=== PATIENT | female | born 1950 | race Hispanic/Latino ===

== ENCOUNTER → 2020-01-12 | Outpatient (CLI) | payer OTHER ==
[~2020-01-12] MED LIST: AMLODIPINE BESYL5 MG PO; CLEOCIN HCL150 MG PO; DICYCLOMINE HCL10 MG PO; FUROSEMIDE40 MG PO; LANSOPRAZOLE30 MG PO; LORATADINE10 MG PO; MELOXICAM7.5 MG PO; POTASSIUM CHLO20 ME1 PO; TYLENOL WITH C1 EACH PO
--- NOTE | 2020-01-12 14:27 | Diagnostic Imaging Report ---
MRI SPINE LUMBAR WO HISTORY: Back pain and left leg pain COMPARISON: None. TECHNIQUE: Sagittal T1, sagittal T2, sagittal STIR, axial T2, coronal T2, and axial proton density weighted images of the lumbar spine were obtained without contrast. Motion artifacts obscure some details. DISCUSSION: Number of non-rib bearing lumbar vertebral bodies: 5. Alignment: Normal lordosis. There is subtle thoracolumbar levoscoliosis. Vertebrae: Scattered small nodular T1 hyperintense vertebral body lesions are benign hemangiomas. Otherwise, no acute fractures, or neoplasm. Conus medullaris: Normal, ends at L1-L2. Cauda equina: No masses or arachnoiditis. Posterior paraspinal muscles: Well preserved. No signal abnormalities. Soft tissues: Colonic diverticulosis is present. There is moderate L4-L5 and severe L5-S1 disc degeneration. There are nonspecific minimal inflammatory plate changes at L5-S1. T12-L1: Patent canal and foramina. L1-L2: Patent canal and foramina. L2-L3: There is minimal retrolisthesis of L2 on L3. Disc bulge without significant canal or foraminal stenosis. L3-L4: There is minimal retrolisthesis of L3 on L4. Disc bulge without significant canal or foraminal stenosis. L4-L5: Grade 1 anterolisthesis of L4 on L5 with possible chronic bilateral L4 pars defects. There is prominent bilateral L4-L5 facet arthrosis with small bilateral facet effusions. Severe canal stenosis is due to uncovered disc bulge and ligamentum flavum thickening. The thecal sac is effaced. Moderate right and mild to moderate left foraminal stenoses due to uncovered disc bulge and facet arthrosis. L5-S1: Grade 1 anterolisthesis of L5 on S1 is due to severe bilateral facet arthrosis. Bilateral L5-S1 facet effusions are present. Moderate canal stenosis due to uncovered disc bulge and ligamentum flavum thickening. Severe bilateral foraminal stenoses due to uncovered disc bulge and facet arthrosis, left greater than right. IMPRESSION: 1. Grade 1 anterolisthesis of L4 on L5 with possible chronic bilateral L4 pars defects. There is also prominent bilateral L4-L5 facet arthrosis. 2. Grade 1 anterolisthesis of L5 on S1 is due to severe bilateral facet arthrosis. 3. Associated moderate L4-L5 and severe L5-S1 disc degeneration with nonspecific minimal inflammatory endplate changes at L5-S1. 4. Severe L4-L5 and moderate L5-S1 degenerative canal stenoses. 5. Multilevel degenerative foraminal stenoses - severe bilaterally at L5-S1, left greater than right. Signed by: Dr. Bryan Delcid M.D. on 01/12/2020 2:24 PM
== END ==
LOC: MRI 12:47
PROVIDERS: ATTEND Specialist
DX: M47.26 Other spondylosis with radiculopathy, lumbar region (principal)
CPT/HCPCS: 72148

== ENCOUNTER 2022-04-02 16:53 | Inpatient (IN) | payer MEDICARE, OTHER ==
[~2022-04-02] VITALS: Ht 157.5 cm; Wt 90.7 kg
[2022-04-02] MEDS ORDERED: IPRATROPIUM BROMIDE 0.02% 2.5 ML NEB NEB ONE (17:00)
[2022-04-02] MEDS ORDERED: ALBUTEROL SULF 0.083% NEB SOLN 3 ML NEB NEB STA (17:00)
[2022-04-02 17:10] LABS: BASOPHILS # (AUTO) 0.1 (0.0-0.1); BASOPHILS % 0.9 % (0.0-1.0); EOSINOPHILS # (AUTO) 0.1 (0.0-0.4); EOSINOPHILS % 0.7 % (0.0-6.0); HEMATOCRIT 42.8 % (34.2-44.1); HEMOGLOBIN 13.9 g/dL (12.0-16.0); LYMPHOCYTES # (AUTO) 1.3 (1.0-3.2); MEAN CORPUSCULAR HEMOGLOBIN 30.9 pg (28-32); MEAN CORPUSCULAR HGB CONC 32.5 g/dL (31-35); MEAN CORPUSCULAR VOLUME 95.1 fL (81-99); MONOCYTES # (AUTO) 0.8 (0.2-0.8); NEUTROPHILS # (AUTO) 9.3 (2.1-6.9); NEUTROPHILS % 79.3 % (38.7-80.0); PLATELET COUNT 316 x10e3/uL (140-360); RED CELL DISTRIBUTION WIDTH 14.3 % (11.7-14.4)
[2022-04-02 17:22] LABS: ABG HCO3 18 mmol/L (22-26); ABG PCO2 28 mmHg (35-45); ABG PO2 61 mmHg (80-105); ABG TCO2 19
[2022-04-02 17:28] LABS: ALBUMIN 3.4 g/dL (3.5-5.0); ALBUMIN/GLOBULIN RATIO 0.8 (0.8-2.0); ANION GAP 24.6 mmol/L (8-16); CALCIUM 8.8 mg/dL (8.4-10.2); CREATININE, SERUM 1.84 mg/dL (0.57-1.11)
[2022-04-02 17:32] LABS: POTASSIUM 2.6 mmol/L (3.5-5.1)
[2022-04-02 17:34] LABS: CREATINE KINASE MB 1.4 ng/mL (0-5.0)
[2022-04-02] MEDS ORDERED: POTASSIUM CHLORIDE 20 MEQ TAB CR PO STA (17:42)
[2022-04-02] MEDS ORDERED: ENOXAPARIN INJ 80 MG/0.8 ML SYR SC STA (18:43)
[2022-04-02] MEDS ORDERED: SODIUM CHLORIDE FLUSH 10 ML SYR INJ PRN (19:00)
[2022-04-02] MEDS ORDERED: ONDANSETRON HCL INJ 2MG/ML 2ML 2 MG/ML VIAL IV PRN (19:00)
[2022-04-02] MEDS ORDERED: POTASSIUM CHLORIDE 20MEQ/100ML 100 ML IV STA (19:01)
[2022-04-02] MEDS ORDERED: SODIUM CHLORIDE 0.9% 250ML 250 ML ONE ×3 (20:15→22:36)
[2022-04-02] MEDS ORDERED: CLONIDINE HCL 0.2 MG TAB PO PRN (20:15)
[2022-04-02] MEDS ORDERED: DEXTROSE 50% SYRINGE 50 ML IV PRN (20:15)
[2022-04-02] MEDS ORDERED: ZOLPIDEM TARTRATE 5 MG TAB PO PRN (20:15)
[2022-04-02] MEDS: INSULIN REGULAR, HUMAN 100 UNIT/1 ML SQ SCH (22:32)
[2022-04-02 23:02] VITALS: BP 118/82
[2022-04-02 23:06] VITALS: BP 118/60
[2022-04-02 23:15] VITALS: BP 109/69
[2022-04-02 23:30] VITALS: BP 112/81
[2022-04-02] MEDS ORDERED: ASPIRIN 81 MG CHEW TAB PO ONE (23:30)
[2022-04-02 23:45] VITALS: BP 101/72
[2022-04-03] VITALS (76 sets, daily range): BP systolic 69–157; BP diastolic 47–128
[2022-04-03 00:44] LABS: CREATINE KINASE MB 1.9 ng/mL (0-5.0)
[2022-04-03] MEDS ORDERED: ACETAMINOPHEN 325 MG TAB PO PRN (01:45)
[2022-04-03 07:17] LABS: BASOPHILS % 0.3 % (0.0-1.0); HEMATOCRIT 37.1 % (34.2-44.1); HEMOGLOBIN 12.9 g/dL (12.0-16.0); LYMPHOCYTES # (AUTO) 1.1 (1.0-3.2); LYMPHOCYTES % 11.3 % (18.0-39.1); MEAN CORPUSCULAR HGB CONC 34.8 g/dL (31-35); MEAN CORPUSCULAR VOLUME 89.2 fL (81-99); MONOCYTES # (AUTO) 0.2 (0.2-0.8); MONOCYTES % 2.5 % (4.4-11.3); NEUTROPHILS % 84.9 % (38.7-80.0); PLATELET COUNT 279 x10e3/uL (140-360); RED BLOOD COUNT 4.16 x10e6/uL (3.6-5.1)
[2022-04-03] MEDS: INSULIN REGULAR, HUMAN 100 UNIT/1 ML SQ SCH (07:30)
[2022-04-03 07:45] LABS: ALBUMIN/GLOBULIN RATIO 0.9 (0.8-2.0); CALCIUM 8.4 mg/dL (8.4-10.2); CREATININE, SERUM 1.3 mg/dL (0.57-1.11)
[2022-04-03 08:05] LABS: CREATINE KINASE MB 1.8 ng/mL (0-5.0)
[2022-04-03] MEDS ORDERED: PANTOPRAZOLE SOD 40 MG TABEC PO SCH (09:00)
[2022-04-03] MEDS ORDERED: AMLODIPINE BESYLATE 5 MG TAB PO SCH (09:00)
[2022-04-03] MEDS ORDERED: HEPARIN SOD (PORCINE) 5,000 UNIT/ML VIAL IV ONE ×2 (09:15→09:55)
[2022-04-03] MEDS ORDERED: ALBUTEROL/IPRATROPIUM 3 ML NEB NEB PRN (09:15)
[2022-04-03] MEDS ORDERED: HEPARIN 25,000 UNIT 25,000 UNIT in DEXTROSE 5% 250ML 250 ML IV SCH ×2 (09:15→09:30)
[2022-04-03] MEDS ORDERED: METOPROLOL TARTRATE INJ 1 MG/ML VIAL IV PRN (09:15)
[2022-04-03] MEDS ORDERED: ACETAMINOPHEN 1000 MG/100 ML IV PRN (09:15)
[2022-04-03] MEDS ORDERED: HYDRALAZINE HCL 20 MG/ML VIAL IV PRN (09:15)
[2022-04-03] MEDS ORDERED: DEXTROSE 50% SYRINGE 50 ML IV PRN (09:15)
[2022-04-03] MEDS ORDERED: DEXAMETHASONE SOD PHOS INJ 4 MG/ML SDV IV SCH (10:00)
[2022-04-03] MEDS: SOD CHL 0.45%/POT CHL 20MEQ 1,000 ML IV SCH ×2 (10:42→12:41)
[2022-04-03] MEDS: POTASSIUM CHLORIDE 20MEQ/100ML 100 ML IV SCH ×2 (10:44→12:40)
[2022-04-03] MEDS: HEPARIN 25,000 UNIT 1,200 UNIT in DEXTROSE 5% 250ML 250 ML IV SCH (10:49)
[2022-04-03] MEDS: INSULIN LISPRO 100 UNIT/1 ML 3ML VIAL SQ SCH ×3 (12:39→21:27)
[2022-04-03] MEDS: ALBUTEROL/IPRATROPIUM 3 ML NEB NEB SCH ×2 (13:00→19:50)
[2022-04-03 15:57] LABS: CREATINE KINASE MB 1.5 ng/mL (0-5.0)
[2022-04-03] MEDS ORDERED: REMDESIVIR 200MG 200 MG in SODIUM CHLORIDE 0.9% 100 ML IV ONE (22:30)
[2022-04-04] VITALS (49 sets, daily range): BP systolic 84–132; BP diastolic 64–104
[2022-04-04] MEDS: ALBUTEROL/IPRATROPIUM 3 ML NEB NEB SCH ×4 (02:20→19:27)
[2022-04-04 06:11] LABS: BASOPHILS % 0.3 % (0.0-1.0); EOSINOPHILS % 0.1 % (0.0-6.0); HEMATOCRIT 31.3 % (34.2-44.1); HEMOGLOBIN 10.7 g/dL (12.0-16.0); LYMPHOCYTES # (AUTO) 1.7 (1.0-3.2); LYMPHOCYTES % 15.2 % (18.0-39.1); MEAN CORPUSCULAR HEMOGLOBIN 31.2 pg (28-32); MEAN CORPUSCULAR HGB CONC 34.2 g/dL (31-35); MEAN CORPUSCULAR VOLUME 91.3 fL (81-99); MONOCYTES # (AUTO) 0.7 (0.2-0.8); MONOCYTES % 6.5 % (4.4-11.3); NEUTROPHILS # (AUTO) 8.4 (2.1-6.9); NEUTROPHILS % 76.7 % (38.7-80.0); PLATELET COUNT 240 x10e3/uL (140-360); RED BLOOD COUNT 3.43 x10e6/uL (3.6-5.1); RED CELL DISTRIBUTION WIDTH 14.3 % (11.7-14.4)
[2022-04-04 06:27] LABS: ANION GAP 13.8 mmol/L (8-16); CALCIUM 7.2 mg/dL (8.4-10.2); CREATININE, SERUM 0.79 mg/dL (0.57-1.11); POTASSIUM 5.8 mmol/L (3.5-5.1)
[2022-04-04 06:29] LABS: MAGNESIUM 1.4 MG/DL (1.3-2.1); PHOSPHORUS 1.7 MG/DL (2.3-4.7)
[2022-04-04 06:50] LABS: THYROID STIMULATING HORMONE 1.327 uIU/mL (0.350-4.940)
[2022-04-04] MEDS: INSULIN LISPRO 100 UNIT/1 ML 3ML VIAL SQ SCH ×4 (07:40→19:58)
[2022-04-04] MEDS: DEXAMETHASONE SOD PHOS INJ 4 MG/ML SDV IV SCH (08:24)
[2022-04-04] MEDS ORDERED: MAGNESIUM SULFATE 2GM/50ML IV ONE (09:00)
[2022-04-04] MEDS ORDERED: REMDESIVIR 200MG 200 MG in SODIUM CHLORIDE 0.9% 100 ML IV ONE (09:00)
[2022-04-04] MEDS ORDERED: MAGNESIUM SULFATE 2GM/50ML 50 ML IV ONE ×2 (09:30→17:00)
[2022-04-04] MEDS ORDERED: IOPAMIDOL 370 MG/ML 100 ML INFUS..BTL INJ ONE (10:03)
[2022-04-04] MEDS: HEPARIN 25,000 UNIT 1,200 UNIT in DEXTROSE 5% 250ML 250 ML IV SCH (10:42)
[2022-04-04] MEDS ORDERED: POTASSIUM CHLORIDE 20 MEQ TAB CR PO STA (16:59)
[2022-04-04] MEDS: CALCIUM CARBONATE 500 MG CHEWABLE TABS PO SCH (17:01)
[2022-04-04] MEDS ORDERED: SODIUM PHOSPHATE IN 0.9 % NACL 20 MMOL in SODIUM CHLORIDE 0.9% 250ML 250 ML IV ONE ×2 (17:30)
[2022-04-04] MEDS ORDERED: ALTEPLASE 50 MG/VIAL (29 MILLION IU) IV SCH (17:30)
[2022-04-04] MEDS ORDERED: ALTEPLASE 100 MG/VIAL IV SCH (17:30)
[2022-04-04] MEDS ORDERED: SODIUM CHLORIDE 0.9% 100 ML ONE (17:43)
[2022-04-04] MEDS: PANTOPRAZOLE SOD 40 MG TABEC PO SCH (19:56)
[2022-04-05] VITALS (61 sets, daily range): BP systolic 82–144; BP diastolic 53–120
[2022-04-05] MEDS: ALBUTEROL/IPRATROPIUM 3 ML NEB NEB SCH ×5 (01:30→23:51)
[2022-04-05 05:13] LABS: BASOPHILS % 0.3 % (0.0-1.0); HEMOGLOBIN 11.7 g/dL (12.0-16.0); LYMPHOCYTES % 14.6 % (18.0-39.1); MEAN CORPUSCULAR HEMOGLOBIN 31.5 pg (28-32); MEAN CORPUSCULAR HGB CONC 34.4 g/dL (31-35); MEAN CORPUSCULAR VOLUME 91.6 fL (81-99); MONOCYTES % 7.8 % (4.4-11.3); NEUTROPHILS # (AUTO) 10.1 (2.1-6.9); NEUTROPHILS % 75.6 % (38.7-80.0); PLATELET COUNT 235 x10e3/uL (140-360); RED BLOOD COUNT 3.71 x10e6/uL (3.6-5.1); RED CELL DISTRIBUTION WIDTH 14.3 % (11.7-14.4)
[2022-04-05 05:33] LABS: ANION GAP 16.2 mmol/L (8-16); CALCIUM 8.7 mg/dL (8.4-10.2); CREATININE, SERUM 0.82 mg/dL (0.57-1.11); POTASSIUM 3.2 mmol/L (3.5-5.1)
[2022-04-05 06:06] LABS: ALBUMIN 2.9 g/dL (3.5-5.0); ALBUMIN/GLOBULIN RATIO 0.9 (0.8-2.0)
[2022-04-05 06:19] LABS: MAGNESIUM 2.1 MG/DL (1.3-2.1); PHOSPHORUS 4.4 MG/DL (2.3-4.7)
[2022-04-05] MEDS: PANTOPRAZOLE SOD 40 MG TABEC PO SCH (07:28)
[2022-04-05] MEDS: INSULIN LISPRO 100 UNIT/1 ML 3ML VIAL SQ SCH ×4 (07:30→22:09)
[2022-04-05] MEDS ORDERED: POTASSIUM CHLORIDE 20MEQ/100ML 200 ML IV ONE (08:15)
[2022-04-05] MEDS: DEXAMETHASONE SOD PHOS INJ 4 MG/ML SDV IV SCH (08:42)
[2022-04-05] MEDS: CALCIUM CARBONATE 500 MG CHEWABLE TABS PO SCH ×2 (08:46→16:34)
[2022-04-05] MEDS: REMDESIVIR 100MG 100 MG in SODIUM CHLORIDE 0.9% 100 ML IV SCH (09:15)
[2022-04-05] MEDS: HEPARIN 25,000 UNIT 1,200 UNIT in DEXTROSE 5% 250ML 250 ML IV SCH ×2 (10:00→22:04)
[2022-04-06] VITALS (27 sets, daily range): BP systolic 86–119; BP diastolic 51–92
[2022-04-06] MEDS: ALBUTEROL/IPRATROPIUM 3 ML NEB NEB SCH ×4 (06:30→23:43)
[2022-04-06 07:08] LABS: BASOPHILS % 0.4 % (0.0-1.0); EOSINOPHILS % 0.4 % (0.0-6.0); HEMOGLOBIN 10.6 g/dL (12.0-16.0); MEAN CORPUSCULAR HGB CONC 32.1 g/dL (31-35); MEAN CORPUSCULAR VOLUME 96.5 fL (81-99); MONOCYTES # (AUTO) 0.8 (0.2-0.8); MONOCYTES % 7.2 % (4.4-11.3); NEUTROPHILS # (AUTO) 7.6 (2.1-6.9); NEUTROPHILS % 71.5 % (38.7-80.0); PLATELET COUNT 219 x10e3/uL (140-360); RED BLOOD COUNT 3.42 x10e6/uL (3.6-5.1); RED CELL DISTRIBUTION WIDTH 14.4 % (11.7-14.4)
[2022-04-06 07:28] LABS: ALBUMIN 2.6 g/dL (3.5-5.0); ALBUMIN/GLOBULIN RATIO 0.9 (0.8-2.0); ANION GAP 12.6 mmol/L (8-16); CALCIUM 8.3 mg/dL (8.4-10.2); CREATININE, SERUM 0.77 mg/dL (0.57-1.11); POTASSIUM 3.6 mmol/L (3.5-5.1)
[2022-04-06] MEDS: INSULIN LISPRO 100 UNIT/1 ML 3ML VIAL SQ SCH ×4 (07:30→21:17)
[2022-04-06] MEDS: PANTOPRAZOLE SOD 40 MG TABEC PO SCH (07:39)
[2022-04-06] MEDS ORDERED: SODIUM CHLORIDE 0.9% 500ML 500 ML IV ONE (07:45)
[2022-04-06] MEDS ORDERED: SODIUM CHLORIDE 0.9% 500ML 500 ML ONE (08:03)
[2022-04-06] MEDS: CALCIUM CARBONATE 500 MG CHEWABLE TABS PO SCH ×2 (09:04→17:04)
[2022-04-06] MEDS: DEXAMETHASONE SOD PHOS INJ 4 MG/ML SDV IV SCH (09:05)
[2022-04-06] MEDS: REMDESIVIR 100MG 100 MG in SODIUM CHLORIDE 0.9% 100 ML IV SCH (09:05)
[2022-04-06] MEDS: ENOXAPARIN SODIUM INJ 100 MG/ML SYR SC SCH (21:16)
[2022-04-06] MEDS: APIXABAN 5 MG TABLET PO SCH (21:16)
[2022-04-07] VITALS (18 sets, daily range): BP systolic 81–123; BP diastolic 55–83
[2022-04-07 06:28] LABS: ANION GAP 14.1 mmol/L (8-16); CALCIUM 8.8 mg/dL (8.4-10.2); CREATININE, SERUM 0.76 mg/dL (0.57-1.11); MAGNESIUM 2.2 MG/DL (1.3-2.1); POTASSIUM 4.1 mmol/L (3.5-5.1)
[2022-04-07] MEDS: ALBUTEROL/IPRATROPIUM 3 ML NEB NEB SCH ×3 (07:06→19:45)
[2022-04-07] MEDS: INSULIN LISPRO 100 UNIT/1 ML 3ML VIAL SQ SCH ×4 (07:34→20:46)
[2022-04-07] MEDS: PANTOPRAZOLE SOD 40 MG TABEC PO SCH (07:44)
[2022-04-07] MEDS: CALCIUM CARBONATE 500 MG CHEWABLE TABS PO SCH ×2 (09:28→16:54)
[2022-04-07] MEDS: DEXAMETHASONE SOD PHOS INJ 4 MG/ML SDV IV SCH (09:29)
[2022-04-07] MEDS: APIXABAN 5 MG TABLET PO SCH ×2 (09:29→20:45)
[2022-04-07] MEDS: ENOXAPARIN SODIUM INJ 100 MG/ML SYR SC SCH ×2 (09:29→20:45)
[2022-04-07] MEDS: REMDESIVIR 100MG 100 MG in SODIUM CHLORIDE 0.9% 100 ML IV SCH (09:30)
[2022-04-07] MEDS ORDERED: IOPAMIDOL 370 MG/ML 100 ML INFUS..BTL INJ ONE (11:16)
[2022-04-08] VITALS (8 sets, daily range): BP systolic 94–146; BP diastolic 55–78
[2022-04-08] MEDS: ALBUTEROL/IPRATROPIUM 3 ML NEB NEB SCH ×4 (00:47→19:48)
[2022-04-08] MEDS: INSULIN LISPRO 100 UNIT/1 ML 3ML VIAL SQ SCH ×4 (07:30→20:28)
[2022-04-08] MEDS: CALCIUM CARBONATE 500 MG CHEWABLE TABS PO SCH ×2 (08:58→16:33)
[2022-04-08] MEDS: APIXABAN 5 MG TABLET PO SCH ×2 (08:59→20:34)
[2022-04-08] MEDS: PANTOPRAZOLE SOD 40 MG TABEC PO SCH (08:59)
[2022-04-08] MEDS: REMDESIVIR 100MG 100 MG in SODIUM CHLORIDE 0.9% 100 ML IV SCH (09:00)
[2022-04-08] MEDS: ENOXAPARIN SODIUM INJ 100 MG/ML SYR SC SCH ×2 (09:00→20:34)
[2022-04-08] MEDS: DEXAMETHASONE SOD PHOS INJ 4 MG/ML SDV IV SCH (09:00)
[2022-04-08] MEDS ORDERED: ONDANSETRON HCL 4 MG ORAL DISINTEGRATING TAB SL PRN (12:30)
[2022-04-09] VITALS (8 sets, daily range): BP systolic 97–116; BP diastolic 60–67
[2022-04-09] MEDS: ALBUTEROL/IPRATROPIUM 3 ML NEB NEB SCH ×4 (01:05→19:05)
[2022-04-09 05:52] LABS: BASOPHILS % 0.2 % (0.0-1.0); EOSINOPHILS # (AUTO) 0.1 (0.0-0.4); EOSINOPHILS % 0.5 % (0.0-6.0); HEMATOCRIT 33.5 % (34.2-44.1); HEMOGLOBIN 10.6 g/dL (12.0-16.0); LYMPHOCYTES # (AUTO) 2.2 (1.0-3.2); LYMPHOCYTES % 17.3 % (18.0-39.1); MEAN CORPUSCULAR HEMOGLOBIN 31.5 pg (28-32); MEAN CORPUSCULAR HGB CONC 31.6 g/dL (31-35); MEAN CORPUSCULAR VOLUME 99.4 fL (81-99); MONOCYTES # (AUTO) 0.8 (0.2-0.8); MONOCYTES % 6.2 % (4.4-11.3); NEUTROPHILS # (AUTO) 9.3 (2.1-6.9); NEUTROPHILS % 74.2 % (38.7-80.0); PLATELET COUNT 267 x10e3/uL (140-360); RED BLOOD COUNT 3.37 x10e6/uL (3.6-5.1); RED CELL DISTRIBUTION WIDTH 14.4 % (11.7-14.4)
[2022-04-09 06:12] LABS: ANION GAP 11.1 mmol/L (8-16); CALCIUM 8.7 mg/dL (8.4-10.2); CREATININE, SERUM 0.79 mg/dL (0.57-1.11); POTASSIUM 4.1 mmol/L (3.5-5.1)
[2022-04-09] MEDS: INSULIN LISPRO 100 UNIT/1 ML 3ML VIAL SQ SCH ×4 (07:30→21:06)
[2022-04-09] MEDS: APIXABAN 5 MG TABLET PO SCH ×2 (08:26→21:00)
[2022-04-09] MEDS: CALCIUM CARBONATE 500 MG CHEWABLE TABS PO SCH ×2 (08:26→17:13)
[2022-04-09] MEDS: PANTOPRAZOLE SOD 40 MG TABEC PO SCH (08:26)
[2022-04-09] MEDS: DEXAMETHASONE SOD PHOS INJ 4 MG/ML SDV IV SCH (08:27)
[2022-04-09] MEDS: ENOXAPARIN SODIUM INJ 100 MG/ML SYR SC SCH (08:27)
[2022-04-10] VITALS (8 sets, daily range): BP systolic 104–121; BP diastolic 57–70
[2022-04-10] MEDS: ALBUTEROL/IPRATROPIUM 3 ML NEB NEB SCH ×4 (01:20→19:52)
[2022-04-10] MEDS: PANTOPRAZOLE SOD 40 MG TABEC PO SCH (07:30)
[2022-04-10] MEDS: INSULIN LISPRO 100 UNIT/1 ML 3ML VIAL SQ SCH ×4 (07:30→21:19)
[2022-04-10] MEDS: DEXAMETHASONE SOD PHOS INJ 4 MG/ML SDV IV SCH (08:49)
[2022-04-10] MEDS: CALCIUM CARBONATE 500 MG CHEWABLE TABS PO SCH ×2 (08:49→16:41)
[2022-04-10] MEDS: APIXABAN 5 MG TABLET PO SCH ×2 (08:49→21:18)
[2022-04-10] MEDS ORDERED: ACETAMINOPHEN 325 MG TAB PO PRN (09:00)
[2022-04-10] MEDS ORDERED: TRAMADOL HCL 50 MG TAB PO PRN (09:00)
[2022-04-11 00:04] VITALS: BP 105/60
[2022-04-11] MEDS: ALBUTEROL/IPRATROPIUM 3 ML NEB NEB SCH ×3 (01:15→12:45)
[2022-04-11 04:37] VITALS: BP 115/65
[2022-04-11 06:17] LABS: BASOPHILS % 0.2 % (0.0-1.0); EOSINOPHILS # (AUTO) 0.1 (0.0-0.4); EOSINOPHILS % 0.7 % (0.0-6.0); HEMATOCRIT 35.3 % (34.2-44.1); HEMOGLOBIN 11.7 g/dL (12.0-16.0); LYMPHOCYTES # (AUTO) 2.4 (1.0-3.2); LYMPHOCYTES % 17.8 % (18.0-39.1); MEAN CORPUSCULAR HEMOGLOBIN 31.1 pg (28-32); MEAN CORPUSCULAR HGB CONC 33.1 g/dL (31-35); MEAN CORPUSCULAR VOLUME 93.9 fL (81-99); MONOCYTES # (AUTO) 0.8 (0.2-0.8); MONOCYTES % 5.8 % (4.4-11.3); NEUTROPHILS # (AUTO) 9.9 (2.1-6.9); NEUTROPHILS % 72.8 % (38.7-80.0); PLATELET COUNT 310 x10e3/uL (140-360); RED BLOOD COUNT 3.76 x10e6/uL (3.6-5.1)
[2022-04-11 06:36] LABS: ANION GAP 11.9 mmol/L (8-16); CREATININE, SERUM 0.79 mg/dL (0.57-1.11); POTASSIUM 3.9 mmol/L (3.5-5.1)
[2022-04-11] MEDS: INSULIN LISPRO 100 UNIT/1 ML 3ML VIAL SQ SCH ×2 (07:30→12:02)
[2022-04-11 08:00] VITALS: BP 115/65
[2022-04-11 08:22] VITALS: BP 108/70
[2022-04-11] MEDS: CALCIUM CARBONATE 500 MG CHEWABLE TABS PO SCH (09:26)
[2022-04-11] MEDS: PANTOPRAZOLE SOD 40 MG TABEC PO SCH (09:27)
[2022-04-11] MEDS: APIXABAN 5 MG TABLET PO SCH (09:27)
[2022-04-11] MEDS: DEXAMETHASONE SOD PHOS INJ 4 MG/ML SDV IV SCH (09:29)
[2022-04-11 12:07] VITALS: BP 126/77
== END 2022-04-11 14:08 | disposition home health service (06) | DRG 853 ==
LOC: ER 17:10 → ERHOLD 18:53 → ICU 21:47 → MED/SURG3 04-07 15:43
PROVIDERS: ADMIT Internal Medicine; ATTEND Internal Medicine
PROC: 5A09357 Assistance with Respiratory Ventilation, Less than 24 Consecutive Hours, Continuous Positive Airway Pressure (ICD-10-PCS; principal; 2022-04-02)
PROC: 02HV33Z Insertion of Infusion Device into Superior Vena Cava, Percutaneous Approach (ICD-10-PCS; 2022-04-03)
PROC: XW043E5 Introduction of Remdesivir Anti-infective into Central Vein, Percutaneous Approach, New Technology Group 5 (ICD-10-PCS; 2022-04-03)
PROC: 3E04329 Introduction of Other Anti-infective into Central Vein, Percutaneous Approach (ICD-10-PCS; 2022-04-03)
PROC: 5A0935A Assistance with Respiratory Ventilation, Less than 24 Consecutive Hours, High Flow/Velocity Cannula (ICD-10-PCS; 2022-04-03)
PROC: 3E0433Z Introduction of Anti-inflammatory into Central Vein, Percutaneous Approach (ICD-10-PCS; 2022-04-03)
PROC: 03F Upper Arteries, Fragmentation (ICD-10-PCS; 2022-04-04)
PROC: 3E04317 Introduction of Other Thrombolytic into Central Vein, Percutaneous Approach (ICD-10-PCS; 2022-04-04)
DX: A41.89 Other specified sepsis (principal); I26.09 Other pulmonary embolism with acute cor pulmonale; U07.1 COVID-19; J96.01 Acute respiratory failure with hypoxia; J12.82 Pneumonia due to coronavirus disease 2019; R65.21 Severe sepsis with septic shock; N17.0 Acute kidney failure with tubular necrosis; I82.431 Acute embolism and thrombosis of right popliteal vein; M79.89 Other specified soft tissue disorders; E87.6 Hypokalemia; E11.22 Type 2 diabetes mellitus with diabetic chronic kidney disease; I12.9 Hypertensive chronic kidney disease with stage 1 through stage 4 chronic kidney disease, or unspecified chronic kidney disease; N18.30 Chronic kidney disease, stage 3 unspecified; E66.9 Obesity, unspecified; Z90.49 Acquired absence of other specified parts of digestive tract; Z87.891 Personal history of nicotine dependence; Z84.89 Family history of other specified conditions; Z68.34 Body mass index [BMI] 34.0-34.9, adult; E87.5 Hyperkalemia; E83.42 Hypomagnesemia; E83.51 Hypocalcemia; M25.572 Pain in left ankle and joints of left foot
CPT/HCPCS: 36415; 36569; 36600; 71045; 71260; 78580; 80048; 80053; 82550; 82553; 82805; 82948; 83036; 83605; 83735; 83880; 84100; 84132; 84443; 84484; 85025; 85379; 85730; 86850; 86900; 87040; 93005; 93306; 93970; 94640; 94660; 94799; 96372; 99285; A9540; J0248; J0456; J0696; J1100; J1644; J1650; J1817; J2405; J3475; J3480; J7040; J7050; Q0162; Q9967

== ENCOUNTER 2022-04-24 03:33 | Inpatient (IN) | payer MEDICARE, OTHER ==
[2022-04-24] VITALS (51 sets, daily range): BP systolic 64–146; BP diastolic 34–91
[~2022-04-24] VITALS: Ht 157.5 cm; Wt 94.1 kg
[2022-04-24] MEDS ORDERED: ACETAMINOPHEN 325 MG TAB PO ONE (03:45)
[2022-04-24] MEDS ORDERED: SODIUM CHLORIDE 0.9% 1000ML 1,000 ML IV ONE ×4 (03:45→16:30)
[2022-04-24 03:58] LABS: BASOPHILS % 0.2 % (0.0-1.0); EOSINOPHILS # (AUTO) 0.1 (0.0-0.4); EOSINOPHILS % 0.3 % (0.0-6.0); HEMATOCRIT 44.5 % (34.2-44.1); HEMOGLOBIN 14.4 g/dL (12.0-16.0); LYMPHOCYTES % 6.1 % (18.0-39.1); MEAN CORPUSCULAR HEMOGLOBIN 30.9 pg (28-32); MEAN CORPUSCULAR HGB CONC 32.4 g/dL (31-35); MEAN CORPUSCULAR VOLUME 95.5 fL (81-99); MONOCYTES # (AUTO) 0.3 (0.2-0.8); MONOCYTES % 1.6 % (4.4-11.3); NEUTROPHILS # (AUTO) 15.1 (2.1-6.9); NEUTROPHILS % 90.1 % (38.7-80.0); PLATELET COUNT 194 x10e3/uL (140-360); RED BLOOD COUNT 4.66 x10e6/uL (3.6-5.1); RED CELL DISTRIBUTION WIDTH 13.4 % (11.7-14.4)
[2022-04-24 04:17] LABS: ALBUMIN 3.4 g/dL (3.5-5.0); ALBUMIN/GLOBULIN RATIO 0.9 (0.8-2.0); CALCIUM 9.4 mg/dL (8.4-10.2); CREATININE, SERUM 1.61 mg/dL (0.57-1.11)
[2022-04-24 04:23] LABS: CREATINE KINASE MB 0.8 ng/mL (0-5.0)
[2022-04-24 06:17] LABS: CLARITY,URINE CLOUDY (CLEAR); COLOR,URINE YELLOW (YELLOW); KETONES,URINE NEGATIVE (NEGATIVE); LEUKOCYTE ESTERASE ,URINE TRACE (NEGATIVE); NITRITE,URINE NEGATIVE (NEGATIVE); PROTEIN,URINE DIPSTICK 2+ (NEGATIVE); URINE UROBILINOGEN 0.2 mg/dL (0.2 - 1)
[2022-04-24 06:34] LABS: BACTERIA,URINE MODERATE /HPF; EPITHELIAL CELLS,URINE MODERATE /LPF; WBC,URINE (MAN) >50 /HPF (0-5)
[2022-04-24] MEDS ORDERED: SODIUM CHLORIDE 0.9% 1000ML 1,000 ML IV STA (06:43)
[2022-04-24] MEDS ORDERED: ONDANSETRON HCL INJ 2MG/ML 2ML 2 MG/ML VIAL IV PRN ×2 (06:45→08:15)
[2022-04-24] MEDS ORDERED: SODIUM CHLORIDE 0.9% 1000ML 1,000 ML ONE (06:58)
[2022-04-24] MEDS ORDERED: DEXTROSE 50% SYRINGE 50 ML IV PRN (08:15)
[2022-04-24] MEDS ORDERED: Vancomycin IV 1 GM in SODIUM CHLORIDE 0.9% 250ML 250 ML IV ONE (08:30)
[2022-04-24] MEDS ORDERED: LACTATED RINGER'S 1,000 ML INJ ONE (08:30)
[2022-04-24] MEDS ORDERED: POTASSIUM CHLORIDE 20 MEQ TAB CR PO ONE (08:45)
[2022-04-24] MEDS: APIXABAN 5 MG TABLET PO SCH ×2 (08:56→16:49)
[2022-04-24] MEDS: MEROPENEM 1 GM in SODIUM CHLORIDE 0.9% 100 ML IV SCH ×2 (08:57→21:31)
[2022-04-24] MEDS: INSULIN REGULAR, HUMAN 100 UNIT/1 ML SQ SCH ×3 (11:39→21:28)
[2022-04-24] MEDS ORDERED: VASOPRESSIN 60 UNIT in DEXTROSE 5% 50ML 57 ML IV PRN (12:00)
[2022-04-24] MEDS: VASOPRESSIN 60 UNIT in DEXTROSE 5% 50ML 57 ML IV PRN (12:30)
[2022-04-24] MEDS: TRAMADOL HCL 50 MG TAB PO PRN (12:41)
[2022-04-24 12:49] LABS: CREATINE KINASE MB 1.8 ng/mL (0-5.0)
[2022-04-24] MEDS ORDERED: ALBUMIN 25% 25GM 100ML 0.25 GM/ML BTL IV ONE (13:00)
[2022-04-24] MEDS: NOREPINEPHRINE 8 MG/D5W 250 ML 250 ML IV SCH ×2 (13:05→20:10)
[2022-04-24 13:10] LABS: BASOPHILS % 0.3 % (0.0-1.0); EOSINOPHILS % 0.1 % (0.0-6.0); HEMATOCRIT 38.5 % (34.2-44.1); HEMOGLOBIN 12.5 g/dL (12.0-16.0); LYMPHOCYTES # (AUTO) 0.4 (1.0-3.2); LYMPHOCYTES % 4.8 % (18.0-39.1); MEAN CORPUSCULAR HEMOGLOBIN 31.3 pg (28-32); MEAN CORPUSCULAR HGB CONC 32.5 g/dL (31-35); MEAN CORPUSCULAR VOLUME 96.3 fL (81-99); MONOCYTES # (AUTO) 0.1 (0.2-0.8); NEUTROPHILS # (AUTO) 7.4 (2.1-6.9); NEUTROPHILS % 93.3 % (38.7-80.0); PLATELET COUNT 129 x10e3/uL (140-360); RED CELL DISTRIBUTION WIDTH 13.5 % (11.7-14.4)
[2022-04-24] MEDS ORDERED: ALBUMIN 25% 25GM 100ML 200 ML IV ONE (13:15)
[2022-04-24] MEDS ORDERED: ACETAMINOPHEN 1000 MG/100 ML IV STA (14:13)
[2022-04-24] MEDS ORDERED: DEXMEDETOMIDINE 100 ML IV PRN (14:15)
[2022-04-24] MEDS ORDERED: DEXMEDETOMIDINE 400MCG/NS100ML 100 ML IV PRN (14:30)
[2022-04-24 14:39] LABS: BAND NEUTROPHILS % (MANUAL) 3 %; LYMPHOCYTES % (MANUAL) 5 % (19-48); METAMYELOCYTES % (MANUAL) 2 % (0-0); NEUTROPHILS % (MANUAL) 89 % (40-74); PLATELET ESTIMATE ADEQUATE; PLATELET MORPHOLOGY COMMENT NORMAL; RBC MORPHOLOGY COMMENT NORMAL
[2022-04-24] MEDS ORDERED: POTASSIUM CHLORIDE 20MEQ/100ML 200 ML IV ONE (16:45)
[2022-04-24] MEDS: LACTATED RINGER'S 1,000 ML INJ SCH ×2 (16:59→20:13)
[2022-04-24 17:41] LABS: ABG HCO3 17 mmol/L (22-26); ABG PCO2 31 mmHg (35-45); ABG PH 7.33 (7.35-7.45); ABG PO2 68 mmHg (80-105); ABG TCO2 17
[2022-04-24 20:14] LABS: CREATINE KINASE MB 1.4 ng/mL (0-5.0)
[2022-04-24] MEDS: ZOLPIDEM TARTRATE 5 MG TAB PO PRN (21:28)
[2022-04-25] VITALS (89 sets, daily range): BP systolic 65–307; BP diastolic 38–289
[2022-04-25 00:33] LABS: CREATINE KINASE MB 1.7 ng/mL (0-5.0)
[2022-04-25] MEDS: VASOPRESSIN 60 UNIT in DEXTROSE 5% 50ML 57 ML IV PRN ×3 (00:51→23:10)
[2022-04-25] MEDS: NOREPINEPHRINE 8 MG/D5W 250 ML 250 ML IV SCH (04:01)
[2022-04-25] MEDS: LACTATED RINGER'S 1,000 ML INJ SCH ×3 (04:21→19:21)
[2022-04-25] MEDS: TRAMADOL HCL 50 MG TAB PO PRN (06:30)
[2022-04-25 06:43] LABS: BASOPHILS # (AUTO) 0.1 (0.0-0.1); BASOPHILS % 0.2 % (0.0-1.0); HEMATOCRIT 33.9 % (34.2-44.1); HEMOGLOBIN 11.4 g/dL (12.0-16.0); LYMPHOCYTES # (AUTO) 1.3 (1.0-3.2); LYMPHOCYTES % 3.8 % (18.0-39.1); MEAN CORPUSCULAR HEMOGLOBIN 31.5 pg (28-32); MEAN CORPUSCULAR HGB CONC 33.6 g/dL (31-35); MEAN CORPUSCULAR VOLUME 93.6 fL (81-99); MONOCYTES # (AUTO) 0.9 (0.2-0.8); MONOCYTES % 2.8 % (4.4-11.3); NEUTROPHILS # (AUTO) 28.6 (2.1-6.9); NEUTROPHILS % 85.8 % (38.7-80.0); PLATELET COUNT 111 x10e3/uL (140-360); RED BLOOD COUNT 3.62 x10e6/uL (3.6-5.1); RED CELL DISTRIBUTION WIDTH 14.2 % (11.7-14.4)
[2022-04-25 07:04] LABS: ALBUMIN 2.8 g/dL (3.5-5.0); ALBUMIN/GLOBULIN RATIO 0.9 (0.8-2.0); ANION GAP 18.5 mmol/L (8-16); CALCIUM 7.5 mg/dL (8.4-10.2); CHOL/HDL RATIO 8.3 (3.0-3.6); CREATININE, SERUM 1.57 mg/dL (0.57-1.11); POTASSIUM 3.5 mmol/L (3.5-5.1)
[2022-04-25] MEDS: INSULIN REGULAR, HUMAN 100 UNIT/1 ML SQ SCH ×4 (07:55→20:44)
[2022-04-25 08:37] LABS: BAND NEUTROPHILS % (MANUAL) 9 %; EOSINOPHILS % (MANUAL) 1 % (0-7); LYMPHOCYTES % (MANUAL) 3 % (19-48); METAMYELOCYTES % (MANUAL) 3 % (0-0); MONOCYTES % (MANUAL) 3 % (3.4-9.0); MYELOCYTES % (MANUAL) 5 % (0-0); NEUTROPHILS % (MANUAL) 76 % (40-74)
[2022-04-25] MEDS: APIXABAN 5 MG TABLET PO SCH ×2 (08:38→16:35)
[2022-04-25] MEDS: MEROPENEM 1 GM in SODIUM CHLORIDE 0.9% 100 ML IV SCH ×2 (08:38→19:21)
[2022-04-25 08:39] LABS: BURR CELLS SLIGHT
[2022-04-25 08:40] LABS: PLATELET ESTIMATE ADEQUATE
[2022-04-25 08:41] LABS: RBC MORPHOLOGY COMMENT NORMAL
[2022-04-25 08:42] LABS: ACANTHOCYTES FEW
[2022-04-25 08:43] LABS: POLYCHROMASIA FEW
[2022-04-25 08:55] LABS: VACUOLE,WBC SLIGHT
[2022-04-25 08:56] LABS: TOXIC GRANULATION SLIGHT
[2022-04-25 08:56] LABS: ABG PH 7.36 (7.35-7.45)
[2022-04-25 08:57] LABS: ABG HCO3 18 mmol/L (22-26); ABG PCO2 31 mmHg (35-45); ABG PO2 69 mmHg (80-105); ABG TCO2 18
[2022-04-25 09:07] LABS: PLATELET MORPHOLOGY COMMENT FEW LARGE
[2022-04-25] MEDS ORDERED: POTASSIUM CHLORIDE 20 MEQ TAB CR PO ONE (17:20)
[2022-04-25] MEDS: ZOLPIDEM TARTRATE 5 MG TAB PO PRN (20:41)
[2022-04-26] VITALS (64 sets, daily range): BP systolic 79–138; BP diastolic 45–94
[2022-04-26] MEDS: LACTATED RINGER'S 1,000 ML INJ SCH (04:08)
[2022-04-26] MEDS: TRAMADOL HCL 50 MG TAB PO PRN (04:09)
[2022-04-26 07:02] LABS: BASOPHILS # (AUTO) 0.2 (0.0-0.1); BASOPHILS % 0.9 % (0.0-1.0); EOSINOPHILS # (AUTO) 0.1 (0.0-0.4); EOSINOPHILS % 0.5 % (0.0-6.0); HEMATOCRIT 31.2 % (34.2-44.1); HEMOGLOBIN 10.4 g/dL (12.0-16.0); LYMPHOCYTES # (AUTO) 1.2 (1.0-3.2); LYMPHOCYTES % 6.6 % (18.0-39.1); MEAN CORPUSCULAR HEMOGLOBIN 31.4 pg (28-32); MEAN CORPUSCULAR HGB CONC 33.3 g/dL (31-35); MEAN CORPUSCULAR VOLUME 94.3 fL (81-99); MONOCYTES # (AUTO) 0.7 (0.2-0.8); MONOCYTES % 3.5 % (4.4-11.3); NEUTROPHILS # (AUTO) 14.6 (2.1-6.9); PLATELET COUNT 82 x10e3/uL (140-360); RED BLOOD COUNT 3.31 x10e6/uL (3.6-5.1); RED CELL DISTRIBUTION WIDTH 14.6 % (11.7-14.4)
[2022-04-26 07:28] LABS: ALBUMIN 2.4 g/dL (3.5-5.0); ALBUMIN/GLOBULIN RATIO 0.8 (0.8-2.0); ANION GAP 14.3 mmol/L (8-16); CALCIUM 7.7 mg/dL (8.4-10.2); CREATININE, SERUM 1.08 mg/dL (0.57-1.11); POTASSIUM 3.3 mmol/L (3.5-5.1)
[2022-04-26] MEDS: INSULIN REGULAR, HUMAN 100 UNIT/1 ML SQ SCH ×4 (07:53→20:53)
[2022-04-26] MEDS: APIXABAN 5 MG TABLET PO SCH ×2 (08:41→17:01)
[2022-04-26] MEDS: MEROPENEM 1 GM in SODIUM CHLORIDE 0.9% 100 ML IV SCH ×2 (08:41→20:53)
[2022-04-26] MEDS ORDERED: POTASSIUM CHLORIDE 10MEQ EA PO ONE (09:30)
[2022-04-26 11:30] LABS: BAND NEUTROPHILS % (MANUAL) 7 %; LYMPHOCYTES % (MANUAL) 8 % (19-48); MONOCYTES % (MANUAL) 1 % (3.4-9.0); NEUTROPHILS % (MANUAL) 84 % (40-74); PLATELET ESTIMATE SLIGHTLY DECREASED
[2022-04-26 11:31] LABS: PLATELET MORPHOLOGY COMMENT NORMAL
[2022-04-26] MEDS: NOREPINEPHRINE 8 MG/D5W 250 ML 250 ML IV SCH (12:24)
[2022-04-27] VITALS (42 sets, daily range): BP systolic 79–139; BP diastolic 37–80
[2022-04-27] MEDS: TRAMADOL HCL 50 MG TAB PO PRN ×3 (06:34→20:28)
[2022-04-27 06:51] LABS: BASOPHILS % 0.2 % (0.0-1.0); EOSINOPHILS # (AUTO) 0.2 (0.0-0.4); EOSINOPHILS % 1.8 % (0.0-6.0); HEMATOCRIT 31.4 % (34.2-44.1); HEMOGLOBIN 10.3 g/dL (12.0-16.0); MEAN CORPUSCULAR HEMOGLOBIN 31.3 pg (28-32); MEAN CORPUSCULAR HGB CONC 32.8 g/dL (31-35); MEAN CORPUSCULAR VOLUME 95.4 fL (81-99); MONOCYTES # (AUTO) 0.4 (0.2-0.8); MONOCYTES % 3.9 % (4.4-11.3); NEUTROPHILS # (AUTO) 9.1 (2.1-6.9); NEUTROPHILS % 84.6 % (38.7-80.0); PLATELET COUNT 88 x10e3/uL (140-360); RED BLOOD COUNT 3.29 x10e6/uL (3.6-5.1); RED CELL DISTRIBUTION WIDTH 14.5 % (11.7-14.4)
[2022-04-27] MEDS: INSULIN REGULAR, HUMAN 100 UNIT/1 ML SQ SCH ×4 (07:30→20:31)
[2022-04-27 07:34] LABS: ALBUMIN 2.2 g/dL (3.5-5.0); ALBUMIN/GLOBULIN RATIO 0.8 (0.8-2.0); ANION GAP 11.1 mmol/L (8-16); CREATININE, SERUM 0.82 mg/dL (0.57-1.11); POTASSIUM 3.1 mmol/L (3.5-5.1)
[2022-04-27] MEDS ORDERED: POTASSIUM CHLORIDE 20 MEQ TAB CR PO STA (07:36)
[2022-04-27] MEDS: MEROPENEM 1 GM in SODIUM CHLORIDE 0.9% 100 ML IV SCH ×2 (08:11→20:28)
[2022-04-27] MEDS: APIXABAN 5 MG TABLET PO SCH ×2 (08:12→16:33)
[2022-04-27] MEDS: NOREPINEPHRINE 8 MG/D5W 250 ML 250 ML IV SCH (11:17)
[2022-04-27] MEDS ORDERED: [UNRECOGNIZED DRUG - OTHER] SL PRN (13:30)
[2022-04-27] MEDS: ZOLPIDEM TARTRATE 5 MG TAB PO PRN (20:29)
[2022-04-28] VITALS (25 sets, daily range): BP systolic 94–132; BP diastolic 41–86
[2022-04-28 06:59] LABS: BASOPHILS % 0.3 % (0.0-1.0); EOSINOPHILS # (AUTO) 0.2 (0.0-0.4); EOSINOPHILS % 2.9 % (0.0-6.0); HEMATOCRIT 33.6 % (34.2-44.1); HEMOGLOBIN 10.7 g/dL (12.0-16.0); LYMPHOCYTES % 13.3 % (18.0-39.1); MEAN CORPUSCULAR HEMOGLOBIN 30.7 pg (28-32); MEAN CORPUSCULAR HGB CONC 31.8 g/dL (31-35); MEAN CORPUSCULAR VOLUME 96.6 fL (81-99); MONOCYTES # (AUTO) 0.7 (0.2-0.8); NEUTROPHILS # (AUTO) 5.4 (2.1-6.9); NEUTROPHILS % 73.4 % (38.7-80.0); PLATELET COUNT 117 x10e3/uL (140-360); RED BLOOD COUNT 3.48 x10e6/uL (3.6-5.1); RED CELL DISTRIBUTION WIDTH 14.6 % (11.7-14.4)
[2022-04-28 07:20] LABS: ALBUMIN 2.2 g/dL (3.5-5.0); ANION GAP 12.3 mmol/L (8-16); CALCIUM 8.4 mg/dL (8.4-10.2); CREATININE, SERUM 0.76 mg/dL (0.57-1.11); POTASSIUM 3.3 mmol/L (3.5-5.1)
[2022-04-28 07:21] LABS: ALBUMIN/GLOBULIN RATIO 0.7 (0.8-2.0)
[2022-04-28] MEDS: INSULIN REGULAR, HUMAN 100 UNIT/1 ML SQ SCH ×4 (07:30→21:00)
[2022-04-28] MEDS: TRAMADOL HCL 50 MG TAB PO PRN ×2 (07:38→17:28)
[2022-04-28] MEDS ORDERED: POTASSIUM CHLORIDE 20 MEQ TAB CR PO ONE (08:30)
[2022-04-28] MEDS: MEROPENEM 1 GM in SODIUM CHLORIDE 0.9% 100 ML IV SCH ×3 (09:24→22:29)
[2022-04-28] MEDS: APIXABAN 5 MG TABLET PO SCH ×2 (09:24→17:10)
[2022-04-28] MEDS: ZOLPIDEM TARTRATE 5 MG TAB PO PRN (22:29)
[2022-04-29] VITALS (21 sets, daily range): BP systolic 94–139; BP diastolic 64–96
[2022-04-29] MEDS: MEROPENEM 1 GM in SODIUM CHLORIDE 0.9% 100 ML IV SCH ×3 (05:46→22:32)
[2022-04-29 06:30] LABS: BASOPHILS % 0.3 % (0.0-1.0); EOSINOPHILS # (AUTO) 0.3 (0.0-0.4); EOSINOPHILS % 4.3 % (0.0-6.0); HEMATOCRIT 34.1 % (34.2-44.1); HEMOGLOBIN 10.7 g/dL (12.0-16.0); LYMPHOCYTES % 14.7 % (18.0-39.1); MEAN CORPUSCULAR HEMOGLOBIN 30.9 pg (28-32); MEAN CORPUSCULAR HGB CONC 31.4 g/dL (31-35); MEAN CORPUSCULAR VOLUME 98.6 fL (81-99); MONOCYTES # (AUTO) 0.9 (0.2-0.8); MONOCYTES % 12.9 % (4.4-11.3); NEUTROPHILS # (AUTO) 4.4 (2.1-6.9); NEUTROPHILS % 65.4 % (38.7-80.0); PLATELET COUNT 142 x10e3/uL (140-360); RED BLOOD COUNT 3.46 x10e6/uL (3.6-5.1); RED CELL DISTRIBUTION WIDTH 14.6 % (11.7-14.4)
[2022-04-29 06:55] LABS: ALBUMIN 2.1 g/dL (3.5-5.0); ALBUMIN/GLOBULIN RATIO 0.7 (0.8-2.0); CALCIUM 8.7 mg/dL (8.4-10.2); CREATININE, SERUM 0.72 mg/dL (0.57-1.11)
[2022-04-29] MEDS: INSULIN REGULAR, HUMAN 100 UNIT/1 ML SQ SCH ×4 (07:29→21:12)
[2022-04-29] MEDS: APIXABAN 5 MG TABLET PO SCH ×2 (08:43→18:21)
[2022-04-29 08:52] LABS: BAND NEUTROPHILS % (MANUAL) 1 %; EOSINOPHILS % (MANUAL) 2 % (0-7); LYMPHOCYTES % (MANUAL) 11 % (19-48); MONOCYTES % (MANUAL) 10 % (3.4-9.0); NEUTROPHILS % (MANUAL) 76 % (40-74); NUCLEATED RED BLOOD CELLS 1; PLATELET ESTIMATE ADEQUATE; PLATELET MORPHOLOGY COMMENT NORMAL
[2022-04-29] MEDS: TRAMADOL HCL 50 MG TAB PO PRN ×2 (09:47→21:13)
[2022-04-30] VITALS (16 sets, daily range): BP systolic 106–127; BP diastolic 53–77
[2022-04-30] MEDS: MEROPENEM 1 GM in SODIUM CHLORIDE 0.9% 100 ML IV SCH ×3 (05:44→21:24)
[2022-04-30] MEDS: INSULIN REGULAR, HUMAN 100 UNIT/1 ML SQ SCH ×4 (07:30→21:26)
[2022-04-30] MEDS: ACETAMINOPHEN 325 MG TAB PO PRN ×2 (08:51→16:46)
[2022-04-30] MEDS: APIXABAN 5 MG TABLET PO SCH ×2 (08:51→16:46)
[2022-04-30] MEDS: ZOLPIDEM TARTRATE 5 MG TAB PO PRN (21:24)
[2022-04-30] MEDS ORDERED: SODIUM CHLORIDE 0.9% 250ML 250 ML ONE (21:45)
[2022-05-01] VITALS (9 sets, daily range): BP systolic 106–132; BP diastolic 45–82
[2022-05-01] MEDS: TRAMADOL HCL 50 MG TAB PO PRN ×2 (02:19→12:51)
[2022-05-01] MEDS: MEROPENEM 1 GM in SODIUM CHLORIDE 0.9% 100 ML IV SCH ×3 (06:15→19:52)
[2022-05-01] MEDS: INSULIN REGULAR, HUMAN 100 UNIT/1 ML SQ SCH ×4 (07:30→20:30)
[2022-05-01] MEDS: APIXABAN 5 MG TABLET PO SCH ×2 (09:05→17:31)
[2022-05-01 11:11] LABS: ANION GAP 15.7 mmol/L (8-16); CALCIUM 8.9 mg/dL (8.4-10.2); CREATININE, SERUM 0.72 mg/dL (0.57-1.11); POTASSIUM 3.7 mmol/L (3.5-5.1)
[2022-05-01 12:04] LABS: BASOPHILS % 0.3 % (0.0-1.0); EOSINOPHILS # (AUTO) 0.2 (0.0-0.4); EOSINOPHILS % 3.6 % (0.0-6.0); HEMATOCRIT 35.7 % (34.2-44.1); HEMOGLOBIN 11.2 g/dL (12.0-16.0); LYMPHOCYTES # (AUTO) 1.4 (1.0-3.2); LYMPHOCYTES % 22.4 % (18.0-39.1); MEAN CORPUSCULAR HEMOGLOBIN 30.6 pg (28-32); MEAN CORPUSCULAR HGB CONC 31.4 g/dL (31-35); MEAN CORPUSCULAR VOLUME 97.5 fL (81-99); MONOCYTES # (AUTO) 0.5 (0.2-0.8); NEUTROPHILS # (AUTO) 3.9 (2.1-6.9); NEUTROPHILS % 64.4 % (38.7-80.0); PLATELET COUNT 283 x10e3/uL (140-360); RED BLOOD COUNT 3.66 x10e6/uL (3.6-5.1); RED CELL DISTRIBUTION WIDTH 14.4 % (11.7-14.4)
[2022-05-01] MEDS: ZOLPIDEM TARTRATE 5 MG TAB PO PRN (19:52)
[2022-05-01] MEDS ORDERED: QUETIAPINE FUMARATE 25 MG TAB PO PRN (22:30)
[2022-05-02] VITALS (7 sets, daily range): BP systolic 100–128; BP diastolic 62–87
[2022-05-02] MEDS: MEROPENEM 1 GM in SODIUM CHLORIDE 0.9% 100 ML IV SCH ×2 (05:21→12:03)
[2022-05-02] MEDS: INSULIN REGULAR, HUMAN 100 UNIT/1 ML SQ SCH ×2 (07:30→11:30)
[2022-05-02] MEDS: APIXABAN 5 MG TABLET PO SCH (09:18)
== END 2022-05-02 13:24 | disposition left against medical advice (07) | DRG 871 ==
LOC: ER 03:49 → ERHOLD 06:56 → ICU 07:51 → MED/SURG2 04-30 15:00
PROVIDERS: ADMIT Internal Medicine; ATTEND Internal Medicine
PROC: 02HV33Z Insertion of Infusion Device into Superior Vena Cava, Percutaneous Approach (ICD-10-PCS; principal; 2022-04-24)
PROC: 3E043XZ Introduction of Vasopressor into Central Vein, Percutaneous Approach (ICD-10-PCS; 2022-04-24)
PROC: 3E04329 Introduction of Other Anti-infective into Central Vein, Percutaneous Approach (ICD-10-PCS; 2022-04-24)
PROC: 05HY33Z Insertion of Infusion Device into Upper Vein, Percutaneous Approach (ICD-10-PCS; 2022-04-24)
DX: A41.51 Sepsis due to Escherichia coli [E. coli] (principal); R65.21 Severe sepsis with septic shock; N17.9 Acute kidney failure, unspecified; N39.0 Urinary tract infection, site not specified; Z16.12 Extended spectrum beta lactamase (ESBL) resistance; B96.89 Other specified bacterial agents as the cause of diseases classified elsewhere; E66.09 Other obesity due to excess calories; Z68.37 Body mass index [BMI] 37.0-37.9, adult; Z86.16 Personal history of COVID-19; Z86.711 Personal history of pulmonary embolism; Z79.01 Long term (current) use of anticoagulants; Z86.718 Personal history of other venous thrombosis and embolism; I10 Essential (primary) hypertension; E87.6 Hypokalemia; D69.6 Thrombocytopenia, unspecified; E11.9 Type 2 diabetes mellitus without complications
CPT/HCPCS: 36415; 36569; 36600; 71045; 73521; 74176; 76770; 80048; 80053; 80061; 81001; 82533; 82550; 82553; 82805; 82948; 83605; 84484; 85025; 87040; 87071; 87086; 87186; 87205; 87400; 93005; 93306; 93971; 94799; 96372; 99251; 99285; J0696; J1817; J2185; J2405; J3370; J3480; J7030; J7050; J7121; Q0162

== ENCOUNTER 2023-06-18 21:27 | Emergency (ER) | payer MEDICARE, OTHER ==
[~2023-06-18] VITALS: Ht 157.5 cm; Wt 93.9 kg
[2023-06-18] MEDS ORDERED: ONDANSETRON HCL INJ 2MG/ML 2ML 2 MG/ML VIAL IV STA (21:37)
[2023-06-18] MEDS ORDERED: MECLIZINE HCL 12.5 MG TAB ONE (21:43)
[2023-06-18] MEDS ORDERED: MECLIZINE HCL 12.5 MG TAB PO ONE (21:45)
[2023-06-18 21:59] LABS: BASOPHILS # (AUTO) 0.1 (0.0-0.1); EOSINOPHILS # (AUTO) 0.3 (0.0-0.4); EOSINOPHILS % 4.3 % (0.0-6.0); HEMOGLOBIN 9.7 g/dL (12.0-16.0); LYMPHOCYTES # (AUTO) 2.4 (1.0-3.2); LYMPHOCYTES % 35.4 % (18.0-39.1); MEAN CORPUSCULAR HEMOGLOBIN 22.6 pg (28-32); MEAN CORPUSCULAR HGB CONC 29.4 g/dL (31-35); MEAN CORPUSCULAR VOLUME 76.7 fL (81-99); MONOCYTES # (AUTO) 0.6 (0.2-0.8); MONOCYTES % 8.5 % (4.4-11.3); NEUTROPHILS # (AUTO) 3.4 (2.1-6.9); NEUTROPHILS % 50.4 % (38.7-80.0); PLATELET COUNT 413 x10e3/uL (140-360); RED CELL DISTRIBUTION WIDTH 18.3 % (11.7-14.4); WHITE BLOOD COUNT 6.69 x10e3/uL (4.8-10.8)
[2023-06-18 22:24] LABS: ALBUMIN 3.5 g/dL (3.5-5.0); ALBUMIN/GLOBULIN RATIO 0.8 (0.8-2.0); BILIRUBIN,TOTAL 0.3 mg/dL (0.2-1.2); CALCIUM 8.8 mg/dL (8.4-10.2); CREATININE, SERUM 0.97 mg/dL (0.57-1.11)
[2023-06-19] MEDS ORDERED: ONDANSETRON ODT4 MG SL (00:11)
[2023-06-19] MEDS ORDERED: ANTIVERT25 M1 PO (00:11)
[2023-06-19 00:22] VITALS: O2SAT 99
[2023-06-19] MEDS ORDERED: IOPAMIDOL 370 MG/ML 100 ML INFUS..BTL INJ ONE (05:57)
== END 2023-06-19 00:57 | disposition home or self-care (01) ==
LOC: ER 21:39
DX: R42 Dizziness and giddiness (principal); R11.2 Nausea with vomiting, unspecified; R51.9 Headache, unspecified; I10 Essential (primary) hypertension; R94.31 Abnormal electrocardiogram [ECG] [EKG]; Z86.711 Personal history of pulmonary embolism
CPT/HCPCS: 36415; 70496; 70498; 71045; 80053; 84484; 85025; 93005; 99284; J2405; J8597; Q9967